=== PATIENT | female | born 1985 | race Caucasian/White ===

== ENCOUNTER 2023-11-15 18:29 | Emergency (ER) | payer OTHER, SELFPAY ==
[2023-11-15 18:41] VITALS: BP 121/81; PULSE 99; RESP 16; TEMP 36.6; O2SAT 100
--- NOTE | 2023-11-15 18:52 | ED.SKABFB ---
HPI - Skin/Abscess/Foreign Bdy General Chief complaint: Skin/Abscess/Foreign Body Stated complaint: Rash Time Seen by Provider: 11/15/23 18:52 Source: patient Mode of arrival: ambulatory Limitations: no limitations History of Present Illness HPI narrative: 38-year-old female presented for complaint of a rash to entire body surface burning for 1 week. She states the rash started behind both knees. She has been taking Benadryl with temporary improvement. Denies lip, tongue, or throat swelling, shortness of breath or wheezing. Denies changes to soap, detergent, lotion, or any other exposures. No one else in the house or any contacts with similar symptoms. Related Data Home Medications Medication Instructions Recorded Confirmed albuterol sulfate 90 mcg/actuation 1 inh inhalation QID 11/15/23 11/15/23 aerosol inhaler Allergies Allergy/AdvReac Type Severity Reaction Status Date / Time prochlorperazine Allergy Severe HALLUCINATI Verified 11/15/23 18:55 ONS codeine Allergy Intermediate NAUSEA, Verified 11/15/23 18:55 HIVES, EYE SWELLING Penicillins Allergy Unknown Rash Verified 11/15/23 18:55 promethazine Allergy Unknown Unknown Verified 11/15/23 18:55 COCONUT Allergy Mild HIVES Uncoded 11/24/18 18:01 [place] Allergy Mild HIVES Uncoded 11/24/18 18:01 Review of Systems Review of Systems: CONSTITUTIONAL: Denies body aches, fever, chills, or sweats. EYES: Denies visual changes, redness, or discharge. ENT: Denies rhinorrhea, congestion CARDIOVASCULAR: Denies chest pain, palpitations, or edema. RESPIRATORY: Denies cough or dyspnea. GASTROINTESTINAL: Denies abdominal pain, nausea, vomiting, or diarrhea. SKIN: Reports rash MUSCULOSKELETAL: Denies back pain, joint pain, or myalgia. NEUROLOGIC: Denies headache, numbness, tingling, or weakness. ON LICENSE OF [facility] Social History Social History Smoking status: Never smoker Second hand tobacco smoke exposure: Yes Alcohol intake: never Substance use type: marijuana Comments At time of signature, I have reviewed and agree with nursing past medical, surgical, social and family history unless otherwise noted. Please see nursing chart for further information. There is no relevant family history pertinent to the presenting complaint Exam Narrative: GENERAL: Well-appearing, EYES: conjunctivae clear ENT: Mucous membranes moist. Oropharynx without edema, erythema or lesions. NECK: Supple. No lymphadenopathy CHEST: Clear to auscultation. No respiratory distress. HEART: Regular rate and rhythm. SKIN: Warm, dry. papular rash c/w contact dermatitis noted to entire body surface sparing face and anterior chest; evidence of scratching lesions. No drainage or tenderness NEURO: Alert and oriented x3. PSYCH: Normal mood and affect Course Course Emergency Course: Patient is aware of diagnosis, understands and agrees to treatment plan. Anticipatory guidance given. Patient agrees to follow-up as directed and is aware of reasons to seek care at the emergency department. Portions of this record may have been created with voice recognition software Level of Care: Express Care Visit Vital Signs Vital signs: Vital Signs Temperature 97.9 F 11/15/23 18:41 Pulse Rate 99 11/15/23 18:41 Respiratory Rate 16 11/15/23 18:41 Blood Pressure 121/81 11/15/23 18:41 Pulse Oximetry 100 11/15/23 18:41 Oxygen Delivery Room Air 11/15/23 18:41 Temperature 97.9 F 11/15/23 18:41 Pulse Rate 99 11/15/23 18:41 Respiratory Rate 16 11/15/23 18:41 Blood Pressure 121/81 11/15/23 18:41 Pulse Oximetry 100 11/15/23 18:41 Oxygen Delivery Room Air 11/15/23 18:41 Reviewed MDM - Skin/Abscess/Foreign Bdy MDM Narrative Medical decision making narrative: Discussed physical exam findings. reviewed prescriptions. Advised supportive measures and signs/symptoms to go to the E
== END 2023-11-15 19:06 | disposition home or self-care (01) ==
PROVIDERS: Emergency Provider Nurse Practitioner Family
DX: L25.9 Unspecified contact dermatitis, unspecified cause (principal)
CPT/HCPCS: 99213; G0463